=== PATIENT | male | born 1985 | race Caucasian/White ===

== ENCOUNTER 2019-04-07 15:41 | Emergency (ER) | payer MEDICAID, OTHER ==
[2019-04-07] MEDS ORDERED: LORAZEPAM INJ 2 MG/ML VIAL ONE ×2 (16:23→17:30)
[2019-04-07] MEDS ORDERED: LORAZEPAM INJ 2 MG/ML VIAL IV ONE ×2 (16:30→17:30)
[2019-04-07] MEDS ORDERED: ASPIRIN 325 MG TABLET PO ONE (17:30)
[2019-04-07] MEDS ORDERED: ASPIRIN 325 MG TABLET ONE (17:30)
== END 2019-04-07 18:31 | disposition home or self-care (01) ==
DX: F41.0 Panic disorder [episodic paroxysmal anxiety] (principal); Z60.2 Problems related to living alone
CPT/HCPCS: 36415; 71045; 80048; 84484; 85025; 85730; 93005; 96374; 96376; 99284; J2060 ×2